=== PATIENT | male | born 1965 | race Hispanic/Latino ===

== ENCOUNTER 2018-11-21 16:06 | Emergency (ER) | payer OTHER ==
[2018-11-21] MEDS ORDERED: CYCLOBENZAPRINE HCL 10 MG TABLET ONE (16:50)
[2018-11-21] MEDS ORDERED: DEXAMETHASONE SOD PHOSPHATE 10MG/ML 1ML VIAL ONE (16:50)
[2018-11-21] MEDS ORDERED: KETOROLAC TROMETHAMINE 60 MG/2 ML VIAL ONE (16:50)
== END 2018-11-21 17:22 | disposition home or self-care (01) ==
LOC: EDH 16:06
DX: S13.4XXA Sprain of ligaments of cervical spine, initial encounter (principal); E11.9 Type 2 diabetes mellitus without complications; Z88.8 Allergy status to other drugs, medicaments and biological substances; V49.49XA Driver injured in collision with other motor vehicles in traffic accident, initial encounter; Y93.89 Activity, other specified; Y92.89 Other specified places as the place of occurrence of the external cause; Y99.8 Other external cause status
CPT/HCPCS: 72040; 96372 ×2; 99284; J1100; J1885

== ENCOUNTER 2019-10-28 | Inpatient (IN) | payer OTHER | END 2019-11-05 13:40 | disposition home or self-care (01) | DRG 871 | PROVIDERS: ADMIT Internal Medicine ==

== ENCOUNTER 2020-10-01 20:12 | Emergency (ER) | payer MEDICAID, OTHER ==
[~2020-10-01] VITALS: Ht 180.3 cm; Wt 106.6 kg
[~2020-10-01 20:12] MED LIST: APIX2.5T PO; ASPI-1443 PO; DEXA6TAB PO; GABA300C PO; HUM100VI3 SQ; HYDR-4064 PO; METF-446 PO; PRAV40TA3 PO; VITA1CAP85 PO
[2020-10-01 20:51] VITALS: BP 123/72
[2020-10-01 21:05] LABS: HEMATOCRIT 37.7 % (42-54); MEAN CORPUSCULAR HEMOGLOBIN 28.6 pg (27.0-33.0); MEAN CORPUSCULAR HGB CONC 33.4 g/dL (32.0-36.0); MEAN CORPUSCULAR VOLUME 85.7 fL (79-99); RED BLOOD CELL COUNT(AUTO) 4.4 MIL/uL (4.50-6.20); RED CELL DISTRIBUTION WIDTH 14.6 % (11.0-15.5); WHITE BLOOD COUNT (AUTO) 10.3 K/uL (4.8-10.8)
[2020-10-01 21:07] LABS: APPEARANCE,URINE Clear (CLEAR); BILIRUBIN,URINE Negative (NEGATIVE); COLOR,URINE Dark Yellow (YELLOW); GLUCOSE, URINE (UA) 500 mg/dL (NEGATIVE); KETONES,URINE Trace mg/dL (NEGATIVE); LEUKOCYTE ESTERASE ,URINE Negative (NEGATIVE); NITRATE,URINE Negative (NEGATIVE); OCCULT BLOOD,URINE Negative (NEGATIVE); PROTEIN,URINE POS 1+ mg/dL (NEGATIVE)
[2020-10-01] MEDS ORDERED: ACETAMINOPHEN 500 MG TABLET PO SCH (21:15)
[2020-10-01] MEDS ORDERED: 0.9%NACL 1000ML 1,000 ML IV SCH (21:15)
[2020-10-01] MEDS ORDERED: ACETAMINOPHEN 500 MG TABLET ONE (21:15)
[2020-10-01 21:17] LABS: BACTERIA,URINE Few /HPF (None Seen); RBC,URINE 0-1 /HPF (0-1); WBC,URINE 0-1 /HPF (0-1)
[2020-10-01 21:18] LABS: MUCUS,URINE Rare LPF (None Seen); SQUAMOUS EPITHELIAL CELL,UR Rare /HPF (0-2)
[2020-10-01 21:24] LABS: CREATININE 1.8 mg/dL (0.5-1.5); POTASSIUM 3.5 mmol/L (3.5-5.1)
[2020-10-01 21:27] LABS: INR 1.15 (0.85-1.15); PROTHROMBIN TIME 12.4 SEC (9.6-11.6)
[2020-10-01 21:28] LABS: PARTIAL THROMBOPLASTIN TIME 27.8 SEC (26.3-35.5)
[2020-10-01 21:37] LABS: ALBUMIN 3.1 g/dL (3.5-5.0); BILIRUBIN,TOTAL 0.9 mg/dL (0.2-1.0); TOTAL PROTEIN, SERUM 8.1 g/dL (6.0-8.3)
[2020-10-01 22:22] VITALS: BP 116/59
[2020-10-01] MEDS ORDERED: KETOROLAC 30MG VIAL (30MG/ML) IV SCH (23:00)
[2020-10-01] MEDS ORDERED: AZITHROMYCIN 500MG+NS 250ML 250 ML IV SCH (23:00)
[2020-10-01] MEDS ORDERED: 0.9%NACL 1000ML 2,259 ML IV ONE (23:00)
[2020-10-01 23:55] VITALS: BP 110/59
[2020-10-02 01:17] VITALS: BP 103/49
[2020-10-02] MEDS ORDERED: AZIT250T9 PO (02:10)
[2020-10-02] MEDS ORDERED: BENZ-17 PO (02:10)
[2020-10-02 02:33] VITALS: BP 107/61
[2020-10-02] MEDS ORDERED: CEFTRIAXONE 500MG VIAL IV SCH (09:00)
== END 2020-10-02 02:52 | disposition home or self-care (01) ==
LOC: EDH 20:24
DX: J18.9 Pneumonia, unspecified organism (principal); E86.0 Dehydration; Z20.822 Contact with and (suspected) exposure to COVID-19; I10 Essential (primary) hypertension; E78.5 Hyperlipidemia, unspecified; E11.9 Type 2 diabetes mellitus without complications; Z88.8 Allergy status to other drugs, medicaments and biological substances; Z79.1 Long term (current) use of non-steroidal anti-inflammatories (NSAID); Z79.01 Long term (current) use of anticoagulants; Z79.52 Long term (current) use of systemic steroids; Z79.4 Long term (current) use of insulin; Z79.899 Other long term (current) drug therapy; Z79.82 Long term (current) use of aspirin
CPT/HCPCS: 36415; 71045; 80053; 81001; 83605; 83690; 84484; 85027; 85610; 85730; 87040 ×2; 87426; 87635; 87804 ×2; 93005; 96365; 96375; 99285; C9803; J0456; J1885